=== PATIENT | female | born 1960 | race Caucasian/White ===

== ENCOUNTER → 2018-06-20 | Outpatient (CLI) | payer OTHER ==
[~2018-06-20] MED LIST: EVEP1CAP PO; MULT-658 PO; UBID1CAP43 PO; [UNRECOGNIZED DRUG - OTHER] PO
[2018-06-20 13:13] LABS: MICROSCOPIC NOT IND
[2018-06-20 13:16] LABS: CULTURE INDICATED? NO
[2018-06-20 13:39] LABS: BASOPHILS # (AUTO) 0.05 x10^3/uL (0-0.1); BASOPHILS % (AUTO) 1 % (0-1); EOSINOPHILS # (AUTO) 0.05 x10^3/uL (0-0.4); EOSINOPHILS % (AUTO) 1 % (1-7); LYMPHOCYTES # (AUTO) 1.41 x10^3/uL (1-3.4); LYMPHOCYTES % (AUTO) 35 % (22-44); MD NO; MEAN CORPUSCULAR HEMOGLOBIN 32.9 pg (27.0-34.8); MEAN CORPUSCULAR HGB CONC 34.1 g/dL (32.4-35.8); MEAN CORPUSCULAR VOLUME 96.5 fL (80-100); MEAN PLATELET VOLUME 8.3 fL (7.4-10.4); MONOCYTES # (AUTO) 0.31 x10^3/uL (0.2-0.8); MONOCYTES % (AUTO) 8 % (2-9); NEUTROPHILS # (AUTO) 2.19 x10^3/uL (1.8-6.8); NEUTROPHILS % (AUTO) 55 % (42-75); PLATELET COUNT 236 x10^3/uL (130-400); RED BLOOD COUNT 4.27 x10^6/uL (3.82-5.3); RED CELL DISTRIBUTION WIDTH 12.8 % (9.6-15.2)
== END | disposition home or self-care (01) ==
LOC: STAR 12:13
PROVIDERS: ATTEND Obstetrics & Gynecology
DX: Z01.818 Encounter for other preprocedural examination (principal); N81.10 Cystocele, unspecified
CPT/HCPCS: 36415; 81003; 85025

== ENCOUNTER 2018-06-27 05:56 | Day surgery (SDC) | payer OTHER ==
[~2018-06-27] VITALS: Ht 160 cm; Wt 76.9 kg
[2018-06-27] MEDS ORDERED: LACTATED RINGERS 1,000 ML IV SCH (06:34)
[2018-06-27] MEDS ORDERED: ESTROGENS CONJUGATED VAG CRM 0.625MG/1G, 30GM ONE (06:35)
[2018-06-27] MEDS ORDERED: THROMBIN 5,000 UNIT VIAL TP ONE (06:35)
[2018-06-27] MEDS ORDERED: BUPIVACAINE/PF-EPI 0.5% 1:200K ONE (06:35)
[2018-06-27] MEDS ORDERED: FLUORESCEIN SODIUM 500 MG/5 ML ONE (06:55)
[2018-06-27] MEDS ORDERED: ACETAMINOPHEN 500 MG TABLET PO ONE (07:00)
[2018-06-27] MEDS ORDERED: GABAPENTIN 300 MG CAPSULE PO ONE (07:00)
[2018-06-27] MEDS ORDERED: MIDAZOLAM 1 MG/ML, 2ML ONE (07:33)
[2018-06-27] MEDS ORDERED: FENTANYL PF 250 MCG/5ML ONE (07:34)
[2018-06-27] MEDS ORDERED: PROPOFOL 10 MG/ML, 20ML ONE (07:44)
[2018-06-27] MEDS ORDERED: DEXAMETHASONE 4 MG/ML, 1ML ONE (07:44)
[2018-06-27] MEDS ORDERED: ONDANSETRON 2MG/ML, 2ML ONE (07:44)
[2018-06-27] MEDS ORDERED: FENTANYL PF 100 MCG/2ML IV PRN (08:00)
[2018-06-27] MEDS ORDERED: MEPERIDINE/PF 25MG/0.5ML IVPush PRN (08:00)
[2018-06-27] MEDS ORDERED: HYDROmorphone 2 MG/ML, 1ML IVPush PRN (08:00)
[2018-06-27] MEDS ORDERED: PROMETHAZINE 25 MG/ML, 1ML IV PRN (08:00)
[2018-06-27] MEDS ORDERED: OXYcodone 5 MG/5 ML ORAL.SOL UDC PO PRN (08:00)
[2018-06-27] MEDS ORDERED: ONDANSETRON 2MG/ML, 2ML IV PRN (08:00)
[2018-06-27] MEDS ORDERED: CEFAZOLIN 1,000 MG ONE (08:08)
[2018-06-27] MEDS ORDERED: KETOROLAC 30 MG/1 ML ONE (08:48)
[2018-06-27] MEDS ORDERED: OXYcodone 5 MG/5 ML ORAL.SOL UDC ONE (09:20)
== END 2018-06-27 12:45 | disposition home or self-care (01) ==
LOC: OUT 05:56
PROVIDERS: ATTEND Obstetrics & Gynecology
DX: N81.10 Cystocele, unspecified (principal); Z90.710 Acquired absence of both cervix and uterus; Z98.890 Other specified postprocedural states
CPT/HCPCS: 57240; J0690; J1100; J1885; J2250; J2405; J2704; J3010; J7120